=== PATIENT | male | born 1965 | race Caucasian/White ===

== ENCOUNTER → 2017-08-31 | Outpatient (CLI) | DX: Z01.812 Encounter for preprocedural laboratory examination (principal); Z01.810 Encounter for preprocedural cardiovascular examination; M75.41 Impingement syndrome of right shoulder; M19.011 Primary osteoarthritis, right shoulder; R94.31 Abnormal electrocardiogram [ECG] [EKG] ==

== ENCOUNTER 2017-09-21 19:51 | Emergency (ER) | payer MEDICARE ==
[~2017-09-21 19:51] MED LIST changes: -ACETAMINOPHEN 1000 MG/100 ML 100 ML IV ONE; -ACETAMINOPHEN/HYDROcodone 325 MG/5 MG TAB ONE; -ANTICRE6 PO; -BUPIVACAINE HCL PF 0.25% 30 ML VIAL ONE; -BUPIVACAINE/EPINEPHRINE 0.5% PF 10 ML VIAL ONE; -CHLORHEXIDINE GLUCONATE 2 % 1 PACK (2 CLOTHS) TOPICAL PRN; -CHLORHEXIDINE GLUCONATE 4% SOLN 120 ML BTL TOPICAL SCH; -HYDR-3516 PO; -KETOROLAC TROMETHAMINE 30 MG/ML (IVP) VIAL ONE; -LACTATED RINGER'S 1000 ML IV PRN; -METOPROLOL TARTRATE 25 MG TAB PO PRN; -MIDAZOLAM HCL 5 MG/ML VIAL (1 ML) ONE; -POVIDONE IODINE 5% (ANTISEPSIS KIT) 4 APPLICATIONS EACH NARE PRN; -SODIUM CHLOR 0.9% 250 ML INJ 250 ML ONE; -SODIUM CHLORID 0.9% 500 ML IV PRN; -VANCOMYCIN 1 GM/200 ML INJ 200 ML IV SCH; -VANCOMYCIN HCL 1000 MG VIAL ONE; -ceFAZolin 2 GM PREMIX 50 ML IV SCH
[2017-09-21 20:00] VITALS: BP 162/101; PULSE 112; RESP 18; TEMP 99; O2SAT 97
[2017-09-21] MEDS ORDERED: ANTICRE6 PO (20:27)
[2017-09-21] MEDS ORDERED: HYDR-3516 PO (20:27)
[2017-09-21] MEDS ORDERED: PAXI10TA8 PO (20:27)
--- NOTE | 2017-09-21 20:32 | PD ---
HPI Chief Complaint: post op complications Time Seen by Provider: 20:11 Travel History International Travel<30 days: No Contact w/Intl Traveler<30days: No Traveled to known affect area: No History of Present Illness HPI 52yo M with PMH of seizure disorder on vimpat presents to the ED with c/o edema in right hand and forearm after partial rotator cuff tear repair of right shoulder by Dr. Erika luu. Said he is unable to extend his wrist. Denies any trauma, fever, focal numbness, chest pain, sob, n/v, abdominal pain. PFSH Past Medical History Cancer: Yes (BRAIN TUMOR (REMOVED)) Cardiovascular Problems: No Diabetes: No Endocrine: No Genitourinary: No Hepatitis: No Hiatal Hernia: No Immune Disorder: No Musculoskeletal: Yes (RIGHT ARM WEAKNESS (R/T BRAIN TUMOR)) Neurologic: Yes (BRAIN TUMOR, SEIZURE (PETITE MAL) X MAY 2017 LAST SEIZURE) Psychiatric: Yes (ANXIETY) Reproductive: No Respiratory: No Thyroid Disease: No Past Surgical History Abdominal Surgery: Yes (APPENDECTOMY) AICD: No Body Medical Devices: INGUINAL HERNIA REPAIR WITH MESH Cardiac Surgery: No Ear Surgery: No Endocrine Surgery: No Eye Surgery: No Genitourinary Surgery: No Gynecologic Surgery: No Joint Replacement: No Neurologic Surgery: Yes (BRAIN TUMOR REMOVAL (1999) X 2) Oral Surgery: No Pacemaker: No Thoracic Surgery: No Other Surgery: Yes (INGUINAL HERNIA REPAIR) Social History Alcohol Use: No Tobacco Use: No Substance Use: No Allergies-Medications (Allergen,Severity, Reaction): Coded Allergies: No Known Allergies (Unverified Allergy, Unknown, 09/21/17) Reported Meds & Prescriptions Reported Meds & Active Scripts Active Reported [Antibiotic] Unknown Dose PO Q6HR Hydrocodone-Acetaminophen 5-325 mg Tab 1 Tab PO Q6H PRN Paxil (Paroxetine HCl) 10 Mg Tab 40 Mg PO DAILY Vimpat (Lacosamide) 200 Mg Tab 200 Mg PO HS Vimpat (Lacosamide) 150 Mg Tab 150 Mg PO AM Lamictal XR (Lamotrigine) 300 Mg [place] 300 Mg PO BID Lorazepam 0.5 Mg Tab 0.5 Mg PO BID PRN Review of Systems Except as stated in HPI: all other systems reviewed are Neg Physical Exam Narrative GENERAL: 52yo M not in distress. SKIN: Focused skin assessment warm/dry. HEAD: Atraumatic. Normocephalic. EYES: Pupils equal and round. No scleral icterus. No injection or drainage. ENT: No nasal bleeding or discharge. Mucous membranes pink and moist. NECK: Trachea midline. No JVD. CARDIOVASCULAR: Regular rate and rhythm. No murmur appreciated. RESPIRATORY: No accessory muscle use. Clear to auscultation. Breath sounds equal bilaterally. GASTROINTESTINAL: Abdomen soft, non-tender, nondistended. MUSCULOSKELETAL: Right shoulder: +Dry blood on steri strips right shoulder. Pt unable to extend right wrist. Radial pulse 2+. Sensation intact. Some edema in right hand and forearm. Compartments soft. Arm is warm. NEUROLOGICAL: Awake and alert. No obvious cranial nerve deficits. Motor grossly within normal limits. Normal speech. PSYCHIATRIC: Appropriate mood and affect; insight and judgment normal. Data Data Last Documented VS Vital Signs Date Time Temp Pulse Resp B/P (MAP) Pulse Ox O2 Delivery O2 Flow Rate FiO2 09/21/17 20:00 99.0 112 18 162/101 (121) 97 Orders Orders Ed Discharge Order (09/21/17 20:53) MDM Medical Decision Making Medical Screen Exam Complete: Yes Emergency Medical Condition: Yes Differential Diagnosis Post operative changes Narrative Course 52yo M here with c/o right arm swelling and inability to extend his right wrist after partial rotator cuff tear right shoulder Dr. James today. I discussed case with Dr. Oden who is covering call for Dr. Trujillo and he said that pt had an interscalene block today and effects will be 24 hours and that the swelling and inability to extend wrist is normal. Pt reassured and instructed to follow up with Dr. James and elevate his arm. Diagnosis Primary Impression: Post-operative state Patient Instructions: General Instructions Departure Forms: Tests/Procedures Additional Instructions: Please follow up with your orthopedic surgeon Dr. James. Return to the ED if symptoms worsen. Please elevate your right arm. Med/Other Pt SpecificInfo: No Change to Meds Disposition: 01 DISCHARGE HOME Condition: Stable Chery Hammond DO Sep 21, 2017 20:32
== END 2017-09-21 21:25 | disposition home or self-care (01) ==
LOC: NEPC 19:51
DX: Z98.890 Other specified postprocedural states (principal); Z79.899 Other long term (current) drug therapy
CPT/HCPCS: 99281

== ENCOUNTER → 2017-09-21 | Day surgery (SDC) | payer MEDICARE ==
[~2017-09-21] VITALS: Ht 182.9 cm; Wt 104.0 kg
[~2017-09-21] MED LIST: ACETAMINOPHEN 1000 MG/100 ML 100 ML IV ONE; ACETAMINOPHEN/HYDROcodone 325 MG/5 MG TAB ONE; ANTICRE6 PO; BUPIVACAINE HCL PF 0.25% 30 ML VIAL ONE; BUPIVACAINE/EPINEPHRINE 0.5% PF 10 ML VIAL ONE; CHLORHEXIDINE GLUCONATE 2 % 1 PACK (2 CLOTHS) TOPICAL PRN; CHLORHEXIDINE GLUCONATE 4% SOLN 120 ML BTL TOPICAL SCH; HYDR-3516 PO; KETOROLAC TROMETHAMINE 30 MG/ML (IVP) VIAL ONE; LACTATED RINGER'S 1000 ML IV PRN; LAMI300T PO; LORA0.5T PO; METOPROLOL TARTRATE 25 MG TAB PO PRN; MIDAZOLAM HCL 5 MG/ML VIAL (1 ML) ONE; PAXI10TA8 PO; PAXI30TA7 PO; POVIDONE IODINE 5% (ANTISEPSIS KIT) 4 APPLICATIONS EACH NARE PRN; SODIUM CHLOR 0.9% 250 ML INJ 250 ML ONE; SODIUM CHLORID 0.9% 500 ML IV PRN; VANCOMYCIN 1 GM/200 ML INJ 200 ML IV SCH; VANCOMYCIN HCL 1000 MG VIAL ONE; VIMP150T PO; VIMP200T PO; ceFAZolin 2 GM PREMIX 50 ML IV SCH
[2017-09-21 07:05] VITALS: PULSE 75
[2017-09-21 07:45] VITALS: PULSE 80
--- NOTE | 2017-09-21 09:54 | MP ---
cc: Michael James MD DATE OF OPERATION: 09/21/2017 SURGEON: Michael James MD PREOPERATIVE DIAGNOSES: 1. Partial rotator cuff tear of the right shoulder. 2. Osteoarthritis of the right acromioclavicular joint. POSTOPERATIVE DIAGNOSES: 1. Partial rotator cuff tear of the right shoulder. 2. Osteoarthritis of the right acromioclavicular joint. PROCEDURE PERFORMED: Repair of rotator cuff, chronic, with excision of distal clavicle. DETAILS OF PROCEDURE: The patient was placed on the operating table in the supine position and then transferred into the modified beach chair position with padding underneath the shoulder and all bony prominences also padded. The right shoulder was then prepped and draped in the usual sterile fashion. A timeout was called. The patient's name, procedure, location were fully confirmed. A curved incision was made over the superior and anterior surface and extended for approximately 1 to 1.5 inches. The wound was taken down through the subcutaneous tissues and bleeding points were electrocauterized. The deep fascia was incised, exposing the coracoacromial ligament, which was thickened and then also excised, allowing for partial visualization of the rotator cuff and bursa. The acromioclavicular joint was identified and obviously arthritic and was then excised by approximately 1 to 1.5 cm. We did encounter a rather prominent bleeding point from a small artery, which was lodged underneath the distal clavicle, and we were unable to obtain access to it until the excision of the clavicle was carried out fully. We then located the bleeder and clamped and electrocauterized it. Additional bleeding was also encountered in the same vicinity, which was electrocauterized. This did result in some increased blood loss than one usually encounters. The rotator cuff was now further exposed after decompression of the acromial process utilizing a high speed bur. The distal clavicle had been excised also with a power saw. The undersurface of the acromion was smoothed with a rasp. The rotator cuff was then fully visualized and palpated and a partial tearing was noted at the supraspinatus insertion. A ccioff-sy-vyrme #2 FiberWire was placed through it and it was tightened up with good closure. After further debridement, the deltoid muscle was then repaired utilizing interrupted sutures of the same #2 FiberWire. The subcutaneous tissue was closed with a running simple 3-0 Vicryl. The skin edges were approximated with a running 4-0 subcuticular suture. The patient was placed in a bulky dressing and a sling and swathe immobilizer. Estimated blood loss was 250-300 mL. Sponge count, needle counts and instrument counts were reported as correct x 2. The patient tolerated the procedure well and went to the recovery room in satisfactory condition. MD JOSE Daniel/ANJANA , 09:36 AM , 09:53 AM
[2017-09-21 09:55] VITALS: PULSE 103
[2017-09-21 12:30] VITALS: BP 150/89; PULSE 90; RESP 16; TEMP 98.4; O2SAT 99
== END | disposition home or self-care (01) ==
LOC: PHSDC 06:04
PROVIDERS: ATTEND Orthopaedic Surgery
DX: M75.111 Incomplete rotator cuff tear or rupture of right shoulder, not specified as traumatic (principal); M19.011 Primary osteoarthritis, right shoulder; M75.41 Impingement syndrome of right shoulder; R60.9 Edema, unspecified
CPT/HCPCS: 01610; 23120; 23412; 64415; 99281; J0131; J1885; J2250; J3010; J3370; J7050